=== PATIENT | male | born 1960 | race Caucasian/White ===

== ENCOUNTER 2017-04-12 04:12 | Observation (INO) | payer SELFPAY ==
[2017-04-12] VITALS (16 sets, daily range): BP systolic 112–212; BP diastolic 60–207; PULSE 68–89; RESP 16–20; TEMP 97.7–98.7; O2SAT 95–99
[~2017-04-12] VITALS: Ht 185.4 cm; Wt 116.6 kg
[2017-04-12] MEDS ORDERED: NITROGLYCERIN 0.4 MG SL 25 TABS/BTL SL ONE ×2 (04:23→04:30)
--- NOTE | 2017-04-12 04:27 | PD ---
HPI Chief Complaint: Chest Pain Time Seen by Provider: 04:20 Travel History International Travel<30 days: No Contact w/Intl Traveler<30days: No Traveled to known affect area: No History of Present Illness HPI 57 y/o male presents with central burning chest pain that woke him from rest about an hour ago. He states he took 2 baby aspirin and came here. He states when he was on the [place] and coughed had lower abdominal pain but denies any now. he notes recent ct of abdomen that was ok. He is visiting for the [place]. He notes a stress test that was normal 2 days ago. He denies prior heart catheterization. He denies other concurrent complaints. He states that he has not had his blood pressure medications for 2 days because he forgot to bring them with him. Quality is burning. Severity is moderate. He denies specific modifying factors. PFSH Past Medical History COPD: Yes Hypertension: Yes Tetanus Vaccination: Unknown Influenza Vaccination: No Past Surgical History Abdominal Surgery: Yes (DOUBLE HERNIA Sx) Social History Alcohol Use: Yes Tobacco Use: No Substance Use: No Allergies-Medications (Allergen,Severity, Reaction): Coded Allergies: No Known Allergies (Unverified , 04/12/17) Reported Meds & Prescriptions Reported Meds & Active Scripts Active Reported Ambien (Zolpidem Tartrate) 10 Mg Tab 10 Mg PO HS PRN [B-Thyroid] 120 Mg PO HS [B-Thyroid] 60 Mg PO DAILY NEB Progesterone Micronized 200 Mg Cap 200 Mg PO DAILY [estrol] 4 Mg PO DAILY Tizanidine (Tizanidine HCl) 4 Mg Cap 4 Mg PO TID Nucynta ER (Tapentadol) 100 Mg Nona 100 Mg PO BID Review of Systems Except as stated in HPI: all other systems reviewed are Neg Physical Exam Narrative GENERAL: 57-year-old male who appears uncomfortable SKIN: Focused skin assessment warm/dry. HEAD: Atraumatic. Normocephalic. EYES: Pupils equal and round. No scleral icterus. No injection or drainage. ENT: No nasal bleeding or discharge. Mucous membranes pink and moist. NECK: Trachea midline. No JVD. CARDIOVASCULAR: Regular rate and rhythm. RESPIRATORY: No accessory muscle use. Expiratory wheezing bilaterally. GASTROINTESTINAL: Abdomen soft, non-tender, nondistended. MUSCULOSKELETAL: No obvious deformities. No clubbing. No cyanosis. No edema. NEUROLOGICAL: Awake and alert. No obvious cranial nerve deficits. Motor grossly within normal limits. Normal speech. PSYCHIATRIC: Appropriate mood and affect; insight and judgment normal. Data Data Last Documented VS Vital Signs Date Time Temp Pulse Resp B/P (MAP) Pulse Ox O2 Delivery O2 Flow Rate FiO2 04/12/17 04:22 97.7 154/92 (112) 159/90 (113) 04/12/17 04:17 88 20 96 Orders Orders Electrocardiogram (04/12/17 04:20) Ckmb (Isoenzyme) Profile (04/12/17 04:20) Complete Blood Count With Diff (04/12/17 04:20) Comprehensive Metabolic Panel (04/12/17 04:20) Magnesium (Mg) (04/12/17 04:20) Prothrombin Time / Inr (Pt) (04/12/17 04:20) Act Partial Throm Time (Ptt) (04/12/17 04:20) Troponin I (04/12/17 04:20) Lipase (04/12/17 04:20) Chest, Single Ap (04/12/17 04:20) Ecg Monitoring (04/12/17 04:20) Bilateral Bp Monitoring (04/12/17 04:20) Iv Access Insert/Monitor (04/12/17 04:20) Oximetry (04/12/17 04:20) Aspirin Chew (Aspirin Chew) (04/12/17 04:30) Sodium Chloride 0.9% Flush (Ns Flush) (04/12/17 04:30) Albuterol-Ipratropium Neb (Duoneb Neb) (04/12/17 04:30) Nitroglycerin Sl (Nitrostat Sl) (04/12/17 04:30) Nitroglycerin Sl (Nitrostat Sl) (04/12/17 04:23) Nitroglycerin Sl (Nitrostat Sl) (04/12/17 04:45) Acetaminophen (Tylenol) (04/12/17 05:00) CKMB (04/12/17 04:23) CKMB% (04/12/17 04:23) Admit Order (Ed Use Only) (04/12/17 05:08) Activity Bed Rest With Brp (04/12/17 05:09) Vital Signs (Adult) Q4H (04/12/17 05:09) Cardiac Rhythm .As Directed (04/12/17 05:09) Notify Dr: Other .PRN (04/12/17 05:09) Notify DrSimon Parameters (04/12/17 05:09) Ckmb (Isoenzyme) Profile (04/12/17 07:09) Ckmb (Isoenzyme) Profile (04/12/17 10:09) Troponin I (04/12/17 07:09) Troponin I (04/12/17 10:09) Electrocardiogram (04/12/17 07:09) Electrocardiogram (04/12/17 10:09) ^ Obtain (04/12/17 05:09) Sodium Chloride 0.9% Flush (Ns Flush) (04/12/17 05:15) Sodium Chloride 0.9% Flush (Ns Flush) (04/12/17 09:00) Associate Professor Of Physics / Telemetry [email or web address] (04/12/17 05:09) Labs Laboratory Tests Test 04/12/17 04:23 White Blood Count 4.8 TH/MM3 Red Blood Count 4.59 MIL/MM3 Hemoglobin 14.0 GM/DL Hematocrit 40.1 % Mean Corpuscular Volume 87.3 FL Mean Corpuscular Hemoglobin 30.5 PG Mean Corpuscular Hemoglobin Concent 34.9 % Red Cell Distribution Width 13.7 % Platelet Count 174 TH/MM3 Mean Platelet Volume 8.2 FL Neutrophils (%) (Auto) 57.7 % Lymphocytes (%) (Auto) 32.8 % Monocytes (%) (Auto) 6.2 % Eosinophils (%) (Auto) 2.3 % Basophils (%) (Auto) 1.0 % Neutrophils # (Auto) 2.8 TH/MM3 Lymphocytes # (Auto) 1.6 TH/MM3 Monocytes # (Auto) 0.3 TH/MM3 Eosinophils # (Auto) 0.1 TH/MM3 Basophils # (Auto) 0.0 TH/MM3 CBC Comment DIFF FINAL Differential Comment Prothrombin Time 9.4 SEC Prothromb Time International Ratio 0.9 RATIO Activated Partial Thromboplast Time 27.9 SEC Blood Urea Nitrogen 12 MG/DL Creatinine 1.14 MG/DL Random Glucose 176 MG/DL Total Protein 7.4 GM/DL Albumin 3.7 GM/DL Calcium Level 8.8 MG/DL Magnesium Level 2.0 MG/DL Alkaline Phosphatase 93 U/L Aspartate Amino Transf (AST/SGOT) 36 U/L Alanine Aminotransferase (ALT/SGPT) 55 U/L Total Bilirubin 0.3 MG/DL Sodium Level 136 MEQ/L Potassium Level 3.9 MEQ/L Chloride Level 103 MEQ/L Carbon Dioxide Level 25.2 MEQ/L Anion Gap 8 MEQ/L Estimat Glomerular Filtration Rate 67 ML/MIN Total Creatine Kinase 109 U/L Creatine Kinase MB 1.7 NG/ML Troponin I LESS THAN 0.02 NG/ML Lipase 104 U/L MDM Medical Decision Making Medical Screen Exam Complete: Yes Emergency Medical Condition: Yes Medical Record Reviewed: Yes (Past history confirmed with nurse) Interpretation(s) CBC & BMP Diagram 04/12/17 04:23 Total Protein 7.4, Albumin 3.7, Calcium Level 8.8, Magnesium Level 2.0, Alkaline Phosphatase 93, Aspartate Amino Transf (AST/SGOT) 36, Alanine Aminotransferase (ALT/SGPT) 55, Total Bilirubin 0.3 cxr no acute Differential Diagnosis Gastritis, cardiac, pancreatitis, musculoskeletal, COPD Narrative Course We will check blood work, chest x-ray and dose with aspirin and nitro and reevaluate ed workup no emergent, cleared with one neb and pain awoke from rest, agrees to observation for further care Diagnosis Primary Impression: Chest pain Qualified Codes: R07.9 - Chest pain, unspecified Admitting Information Admitting Physician Requests: Observation Mansi Stephenson MD Apr 12, 2017 04:27
[2017-04-12] MEDS ORDERED: SODIUM CHLORIDE 0.9% FLUSH 10 ML FLUSH IVF PRN (04:30)
[2017-04-12] MEDS ORDERED: ASPIRIN 81 MG CHEW TAB PO ONE (04:30)
[2017-04-12] MEDS ORDERED: RESP: ALBUTEROL 2.5 MG/IPRATROPIUM 0.5 MG NEB (SCH) NEB ONE (04:30)
[2017-04-12 04:32] LABS: AUTOMATED NEUTROPHIL # 2.8 TH/MM3 (1.8-7.7); EOSINOPHIL # 0.1 TH/MM3 (0-0.4); EOSINOPHIL % 2.3 % (0.0-4.0); HEMATOCRIT 40.1 % (39.0-51.0); LYMPH % 32.8 % (9.0-44.0); LYMPHOCYTE # 1.6 TH/MM3 (1.0-4.8); MEAN CELL VOLUME 87.3 FL (80.0-100.0); MEAN CORPUSCULAR HEMOGLOBIN 30.5 PG (27.0-34.0); MEAN CORPUSCULAR HGB CONC 34.9 % (32.0-36.0); MEAN PLATELET VOLUME 8.2 FL (7.0-11.0); MONO % 6.2 % (0.0-8.0); MONOCYTE # 0.3 TH/MM3 (0-0.9); NEUT % 57.7 % (16.0-70.0); PLATELET COUNT 174 TH/MM3 (150-450); RED BLOOD COUNT 4.59 MIL/MM3 (4.50-5.90); RED CELL DISTRIBUTION WIDTH 13.7 % (11.6-17.2); WHITE BLOOD COUNT 4.8 TH/MM3 (4.0-11.0)
[2017-04-12] MEDS: NITROGLYCERIN 0.4 MG SL 25 TABS/BTL SL SCH ×2 (04:39→04:54)
[2017-04-12 04:46] LABS: INTERNATIONAL NORMALIZED RATIO 0.9 RATIO; PROTHROMBIN TIME - PATIENT 9.4 SEC (9.8-11.6)
[2017-04-12 04:47] LABS: ALT (GPT) 55 U/L (12-78)
[2017-04-12 04:48] LABS: ALBUMIN 3.7 GM/DL (3.4-5.0); AST (GOT) 36 U/L (15-37); BICARBONATE 25.2 MEQ/L (21.0-32.0); BLOOD UREA NITROGEN 12 MG/DL (7-18); CALCIUM 8.8 MG/DL (8.5-10.1); CHLORIDE 103 MEQ/L (98-107); CREATININE 1.14 MG/DL (0.60-1.30); GLOMERULAR FILTRATION RATE 67 ML/MIN (>89); GLUCOSE,RANDOM 176 MG/DL (74-106); SODIUM (NA) 136 MEQ/L (136-145)
--- NOTE | 2017-04-12 04:50 | RADRPT ---
EXAM DATE/TIME: 04/12/2017 04:32 [facility] COMPARISON: No previous studies available for comparison. INDICATIONS : Pt woke with chest pain MEDICAL HISTORY : Hypertension. Chronic obstructive pulmonary disease. SURGICAL HISTORY : Double hernia repair ENCOUNTER: Initial ACUITY: 1 day PAIN SCORE: 8/10 LOCATION: Bilateral chest FINDINGS: The lungs are clear without infiltrate, nodule, or mass. There is no appreciable pleural effusion fo r technique. Heart and mediastinum are unremarkable. CONCLUSION: No acute cardiopulmonary disease. Domenico Saha MD on April 12, 2017 at 4:48 Board Certified Radiologist. This report was verified electronically.
[2017-04-12 04:51] LABS: ALKALINE PHOSPHATASE 93 U/L (45-117); TOTAL BILIRUBIN ADULT 0.3 MG/DL (0.2-1.0); TOTAL PROTEIN 7.4 GM/DL (6.4-8.2); TROPONIN I LESS THAN 0.02 NG/ML (0.02-0.05)
[2017-04-12] MEDS ORDERED: PROG200C PO (04:51)
[2017-04-12] MEDS ORDERED: [UNRECOGNIZED DRUG - OTHER] PO ×2 (04:51)
[2017-04-12] MEDS ORDERED: TIZA4CAP3 PO (04:51)
[2017-04-12] MEDS ORDERED: [UNRECOGNIZED DRUG - OTHER] PO (04:51)
[2017-04-12] MEDS ORDERED: AMBI10TA PO (04:51)
[2017-04-12] MEDS ORDERED: NUCY100T9 PO (04:51)
[2017-04-12] MEDS ORDERED: ACETAMINOPHEN 325 MG TAB PO ONE (05:00)
[2017-04-12] MEDS ORDERED: SODIUM CHLORIDE 0.9% FLUSH 10 ML FLUSH IV FLUSH PRN ×3 (05:15→20:00)
[2017-04-12] MEDS ORDERED: ONDANSETRON HCL 4 MG/2 ML VIAL IV PUSH ONE (06:00)
[2017-04-12] MEDS ORDERED: BLOOD PRESSURE (06:24)
[2017-04-12 08:24] LABS: TROPONIN I LESS THAN 0.02 NG/ML (0.02-0.05)
[2017-04-12] MEDS ORDERED: RESP: ALBUTEROL 2.5 MG/IPRATROPIUM 0.5 MG NEB (PRN) INH (08:30)
[2017-04-12] MEDS ORDERED: ALUMINUM/MAGNESIUM/SIMETH 30 ML CUP PO ONE (08:30)
[2017-04-12] MEDS ORDERED: ACETAMINOPHEN 500 MG CPLT PO ONE (08:30)
[2017-04-12] MEDS ORDERED: SODIUM CHLORIDE 0.9% FLUSH 10 ML FLUSH IV FLUSH SCH ×2 (09:00→21:00)
--- NOTE | 2017-04-12 11:16 | EKG ---
Date Performed: 04/12/2017 Time Performed: 04:18:44 PTAGE: 57 years EKG: Sinus rhythm MARKED LEFT AXIS DEVIATION LOW QRS VOLTAGE IN EXTREMITY LEADS Poor R wave progression ABNORMAL ECG NO PREVIOUS TRACING DOCTOR: Neo Goetz Interpretating Date/Time 04/12/2017 11:15:56
--- NOTE | 2017-04-12 11:23 | HHI.HP ---
HPI Primary Care Physician No Primary Care Physician Chief Complaint Chest pain History of Present Illness This is a 57-year-old male who presents to ED via private vehicle with complaint of waking up at 230 morning with the chest discomfort. Describes it as a 13 out of 10 chest tightness. Left-sided. He was short of breath, nauseous, diaphoretic. States that he had an episode of nausea with small amount of emesis that was nonbloody. Went to the bathroom and believe that he had diarrhea and at that point became diaphoretic. His discomfort lasted about 45 minutes. Found nothing to worsen or improve it. States had a similar episode a couple years ago and had a stress test and that was okay. He is here from [place] to watch the races. Has no complaints at this time. Review of Systems General: Patient denies fevers, chills , and recent travel. HEENT: Patient denies headache, sore throat, difficulty swallowing. Cardiovascular: Has the chest discomfort as mentioned above. Denies sensation of heart beating rapidly or irregularly. No syncope. He was diaphoretic. Respiratory: He was short of breath. Denies inspirational chest discomfort. Denies coughing wheezing or hemoptysis. GI: Episode of nausea and emesis. [place] as if he also had an episode of diarrhea. Patient denies abdominal pain and bloody stools. Musculoskeletal: Chronic back pain. Patient denies joint pain or edema. Denies calf pain or edema. Neurovascular: Patient denies numbness, tingling, weakness in extremities. Denies headache. Endocrine: Denies polyuria and polydipsia. Hematologic: Denies easy bruising. Skin: Denies rash or itching. Past Family Social History Allergies: Coded Allergies: No Known Allergies (Unverified , 04/12/17) Past Medical History COPD, hypertension, chronic back pain, hyperlipidemia however he states he takes no medication. Past history of tobacco abuse but quit smoking 6 months ago. Denies diabetes and known CAD. Past Surgical History Hernia repair. Reported Medications Reported Meds & Active Scripts Active Reported [Blood Pressure] Unknown Dose Active Ordered Medications Current Medications Medications (Trade) Dose Ordered Sig/Tez Route Start Time Stop Time Status Last Admin (NS Flush) 2 ml UNSCH PRN IVF 04/12/17 04:30 (NS Flush) 2 ml UNSCH PRN IV FLUSH 04/12/17 05:15 (NS Flush) 2 ml BID IV FLUSH 04/12/17 09:00 04/12/17 08:46 (Duoneb Neb) 1 ampule Q4HR NEB PRN INH 04/12/17 08:30 Family History Father had CAD and age 69 of a myocardial infarction. Social History Quit smoking 6 months ago prior that he smoked about 2 packs there is daily for 20 years. Denies illicit drugs. Rarely has alcohol. States he is disabled secondary to chronic back pain. Physical Exam Vital Signs Vital Signs Date Time Temp Pulse Resp B/P (MAP) Pulse Ox O2 Delivery O2 Flow Rate FiO2 04/12/17 10:28 20 04/12/17 09:24 98.2 68 20 136/80 (98) 98 04/12/17 06:06 98.7 81 20 121/70 (87) 96 04/12/17 06:02 04/12/17 05:25 89 18 134/69 (90) 99 Room Air 04/12/17 05:10 86 16 139/64 (89) 99 Room Air 04/12/17 04:40 87 18 141/78 (99) 95 Room Air 04/12/17 04:22 97.7 154/92 (112) 159/90 (113) 04/12/17 04:17 88 20 212/207 (209) 96 04/12/17 04:14 97.7 83 18 179/89 (119) 96 Physical Exam GENERAL: This is a well-nourished, well-developed patient, in no apparent distress. Patient speaks in clear complete sentences. Patient is pleasant. HEENT: Head is atraumatic and normocephalic. Neck is supple without lymphadenopathy and trachea is midline. No JVD or carotid bruits. CARDIOVASCULAR: Regular rate and rhythm without murmurs, gallops, or rubs. RESPIRATORY: Clear to auscultation. Breath sounds equal bilaterally. No wheezes , rales, or rhonchi. Chest wall is nontender. No use of accessory muscles. GASTROINTESTINAL: Abdomen is nontender, nondistended. Abdomen soft. No obvious pulsatile mass or bruit. No CVA tenderness. Strong femoral pulses bilaterally. Normal bowel sounds in all quadrants. MUSCULOSKELETAL: Patient is moving upper and lower extremities freely. No calf tenderness or edema, no Homans sign. Strong pulses in upper and lower extremities. NEUROLOGICAL: Patient is alert and oriented. Cranial nerves 2-12 are grossly intact. No focal deficits and speech is clear. SKIN: No rash and turgor is normal. Laboratory Laboratory Tests Test 04/12/17 04:23 04/12/17 07:00 White Blood Count 4.8 Red Blood Count 4.59 Hemoglobin 14.0 Hematocrit 40.1 Mean Corpuscular Volume 87.3 Mean Corpuscular Hemoglobin 30.5 Mean Corpuscular Hemoglobin Concent 34.9 Red Cell Distribution Width 13.7 Platelet Count 174 Mean Platelet Volume 8.2 Neutrophils (%) (Auto) 57.7 Lymphocytes (%) (Auto) 32.8 Monocytes (%) (Auto) 6.2 Eosinophils (%) (Auto) 2.3 Basophils (%) (Auto) 1.0 Neutrophils # (Auto) 2.8 Lymphocytes # (Auto) 1.6 Monocytes # (Auto) 0.3 Eosinophils # (Auto) 0.1 Basophils # (Auto) 0.0 CBC Comment DIFF FINAL Differential Comment Prothrombin Time 9.4 Prothromb Time International Ratio 0.9 Activated Partial Thromboplast Time 27.9 Blood Urea Nitrogen 12 Creatinine 1.14 Random Glucose 176 Total Protein 7.4 Albumin 3.7 Calcium Level 8.8 Magnesium Level 2.0 Alkaline Phosphatase 93 Aspartate Amino Transf (AST/SGOT) 36 Alanine Aminotransferase (ALT/SGPT) 55 Total Bilirubin 0.3 Sodium Level 136 Potassium Level 3.9 Chloride Level 103 Carbon Dioxide Level 25.2 Anion Gap 8 Estimat Glomerular Filtration Rate 67 Total Creatine Kinase 109 104 Creatine Kinase MB 1.7 1.3 Troponin I LESS THAN 0.02 LESS THAN 0.02 Lipase 104 Result Diagram: 04/12/1742204/12/17422 Imaging Last 48 hours Impressions Chest X-Ray 04/12/17419 Signed Impressions: Service Date/Time: Wednesday, April 12, 2017 04:32 - CONCLUSION: No acute cardiopulmonary disease. Domenico Saha MD Course EKGs are left axis. Poor progression. No significant ST segment depressions or elevations. Caprini VTE Risk Assessment Caprini VTE Risk Assessment: No/Low Risk (score <= 1) Caprini Risk Assessment Model Point Value = 1 Point Value = 2 Point Value = 3 Point Value = 5 Age 41-60 Minor surgery BMI > 25 kg/m2 Swollen legs Varicose veins or History of unexplained or recurrent spontaneous Oral contraceptives or hormone replacement Sepsis (< 1 month) Serious lung disease, including pneumonia (< 1 month) Abnormal pulmonary function Acute myocardial infarction Congestive heart failure (< 1 month) History of inflammatory bowel disease Medical patient at bed rest Age 61-74 Arthroscopic surgery Major open surgery (> 45 min) Laparoscopic surgery (> 45 min) Malignancy Confined to bed (> 72 hours) Immobilizing plaster cast Central venous access Age >= 75 History of VTE Family history of VTE Factor V Leiden Prothrombin [id number] Lupus anticoagulant Anticardiolipin antibodies Elevated serum homocysteine Heparin-induced thrombocytopenia Other congenital or acquired thrombophilia Stroke (< 1 month) Elective arthroplasty Hip, pelvis, or leg fracture Acute spinal cord injury (< 1 month) Prophylaxis Regimen Total Risk Factor Score Risk Level Prophylaxis Regimen 0-1 Low Early ambulation 2 Moderate Order ONE of the following: *Sequential Compression Device (SCD) *Heparin 5000 units SQ BID 3-4 Higher Order ONE of the following medications: *Heparin 5000 units SQ TID *Enoxaparin/Lovenox 40 mg SQ daily (WT < 150 kg, CrCl > 30 mL/min) *Enoxaparin/Lovenox 30 mg SQ daily (WT < 150 kg, CrCl > 10-29 mL/min) *Enoxaparin/Lovenox 30 mg SQ BID (WT < 150 kg, CrCl > 30 mL/min) AND/OR *Sequential Compression Device (SCD) 5 or more Highest Order ONE of the following medications: *Heparin 5000 units SQ TID (Preferred with Epidurals) *Enoxaparin/Lovenox 40 mg SQ daily (WT < 150 kg, CrCl > 30 mL/min) *Enoxaparin/Lovenox 30 mg SQ daily (WT < 150 kg, CrCl > 10-29 mL/min) *Enoxaparin/Lovenox 30 mg SQ BID (WT < 150 kg, CrCl > 30 mL/min) AND *Sequential Compression Device (SCD) Assessment and Plan Assessment and Plan * Chest pain: Patient has had first 2 sets of cardiac enzymes and EKGs and has ruled out. He was seen by Dr. Goetz cardiology in the chest pain center. He will undergo a Lexiscan as he states he cannot walk a treadmill with his back issues. Patient will be discharged home with a stress test as nonischemic with instructions to follow-up with PCP. Return to ED for interval issues. * COPD: Have DuoNeb's as needed. * Hypertension: Continue medication. * Hyperlipidemia: Patient will need to discuss statin therapy with his PCP. Patient states that first medication he took caused myalgias. Patient is stable at this time. He is agreeable to this plan. Aldo Michelle Apr 12, 2017 11:23
[2017-04-12] MEDS ORDERED: REGADENOSON INJ 0.4 MG/5 ML SYR ONE (12:58)
[2017-04-12 13:45] LABS: TROPONIN I LESS THAN 0.02 NG/ML (0.02-0.05)
--- NOTE | 2017-04-12 14:19 | EKG ---
Date Performed: 04/12/2017 Time Performed: 10:33:52 PTAGE: 57 years EKG: Sinus rhythm LOW QRS VOLTAGE Poor R wave progression ABNORMAL ECG PREVIOUS TRACING : 04/12/2017 04.18 Since previous tracing, no significant change noted DOCTOR: Neo Goetz Interpretating Date/Time 04/12/2017 14:17:38
[2017-04-12] MEDS ORDERED: CYCL5TAB PO (14:25)
--- NOTE | 2017-04-12 14:25 | RADRPT ---
EXAM DATE/TIME: 04/12/2017 12:56 [facility] COMPARISON: No previous studies available for comparison. INDICATIONS : Left sided chest pain for one day. Angina. DOSE: 35.0 mCi Tc99m Myoview at stress. 11.0 mCi Tc99m Myoview at rest. 0.4 mg Lexiscan STRESS SYMPTOMS: Short of breath and flush. EJECTION FRACTION: 54% MEDICAL HISTORY : Chronic obstructive pulmonary disease. Hypertension. SURGICAL HISTORY : Umbilical hernia repair. ENCOUNTER: Initial ACUITY: 1 day PAIN SCALE: 10/10 LOCATION: Left chest TECHNIQUE: The patient underwent pharmacologic stress with infusion of prescribed dose. Continuous ECG tracing was monitored during stress. Gated SPECT imaging was performed after stress and conventional SPECT i maging was performed at rest. The examination was performed on a SPECT/CT scanner, both attenuation and non-corrected datasets were reviewed. FINDINGS: DISTRIBUTION: The maximum perfused segment at stress is in the lateral wall. PERFUSION STUDY: Subtle focal perfusion abnormality during stress in the anterior wall near the base. GATED STUDY: There is intact wall motion and thickening without hypokinetic or dyskinetic segments. CONCLUSION: 1. Subtle focal anterior wall ischemia near the base. 2. Intact wall motion with EF of 54%. RISK CATEGORY: Low (<1% Annual Mortality Rate) Jesus Saini MD on April 12, 2017 at 14:21 Board Certified Radiologist. This report was verified electronically.
[2017-04-12] MEDS ORDERED: HYDR12.57 PO (14:26)
[2017-04-12] MEDS ORDERED: SYMB80AE INH (14:28)
[2017-04-12] MEDS ORDERED: SODIUM CHLOR 0.9% 1000 ML INJ 1,000 ML IV SCH (15:02)
[2017-04-12] MEDS ORDERED: ASPIRIN 325 MG TAB PO SCH (15:45)
--- NOTE | 2017-04-12 17:59 | HHI.HP ---
HPI Service [facility] Primary [facility] Physician No Primary Care Physician Admission Diagnosis chest pain Diagnoses: Chief Complaint: Chest pain Travel History International Travel<30 Days: No Contact w/Intl Traveler <30 Da: No Traveled to Known Affected Are: No History of Present Illness Patient is a 57-year-old male with primary medical history of HTN, COPD, GERD, chronic back pain who came into the hospital for complaints of chest pain. Patient states that he woke up about 2:30 this morning with substernal pain thinking it was his GERD. He went to the bathroom and all of a sudden he felt nauseous, diaphoretic and had a bowel movement. She felt not to good that he came into the hospital. Patient has gotten aspirin, nitroglycerin. He was seen by cardiology and has performed stress test. Patient is due for cardiac catheter this evening. He continues to have substernal pain on and off feeling pressure. He also reports that he is short of breath since about a few weeks back needing rest periods in between activities. At present, denies SOB/ dyspnea. Denies palpitations, headaches, dizziness. Denies fevers, chills, n/v/d. Denies dysuria. Review of Systems Except as stated in HPI: all other systems reviewed are Neg Past Family Social History Past Medical History HTN HLD COPD Chronic back pain GERD Past Surgical History Medical hernia repair 10 years ago Bilateral inguinal hernia repair Reported Medications Reported Meds & Active Scripts Active Reported Symbicort Inh (Budesonide/Formoterol Fumarate) 80-4.5 Mcg/Act Aero 1 Puff INH Q12HR Hydrochlorothiazide 12.5 Mg Cap 12.5 Mg PO BID Flexeril (Cyclobenzaprine HCl) 5 Mg Tab 5 Mg PO TID Allergies: Coded Allergies: No Known Allergies (Unverified , 04/12/17) Active Ordered Medications Current Medications Medications (Trade) Dose Ordered Sig/Tez Route Start Time Stop Time Status Last Admin (NS Flush) 2 ml UNSCH PRN IVF 04/12/17 04:30 (NS Flush) 2 ml UNSCH PRN IV FLUSH 04/12/17 05:15 (NS Flush) 2 ml BID IV FLUSH 04/12/17 09:00 04/12/17 08:46 (Duoneb Neb) 1 ampule Q4HR NEB PRN INH 04/12/17 08:30 (Nitroglycerin 2% Oint) 1 inch Q6HR TOPICAL 04/12/17 18:00 (Lopressor) 25 mg Q12HR PO 04/12/17 21:00 Sodium Chloride 1,000 ml @ 125 mls/hr Q8H IV 04/12/17 15:02 04/12/17 23:01 04/12/17 15:33 (Aspirin) 325 mg DAILY PO 04/12/17 15:45 04/12/17 16:16 Family History Father at the age of 69 with congestive heart failure Social History Lives in [place] with . Occasional alcohol use Former smoker, quit 5 years ago smoking cigarettes, recently quit cigar cocaine 6 months ago Denies illicit drug use Physical Exam Vital Signs Vital Signs Date Time Temp Pulse Resp B/P (MAP) Pulse Ox O2 Delivery O2 Flow Rate FiO2 04/12/17 17:14 98.2 68 20 140/62 (88) 96 04/12/17 15:35 72 04/12/17 12:06 97.9 72 18 140/80 (100) 98 04/12/17 10:28 20 04/12/17 09:24 98.2 68 20 136/80 (98) 98 04/12/17 08:10 80 04/12/17 06:06 98.7 81 20 121/70 (87) 96 04/12/17 06:02 04/12/17 05:25 89 18 134/69 (90) 99 Room Air 04/12/17 05:10 86 16 139/64 (89) 99 Room Air 04/12/17 04:40 87 18 141/78 (99) 95 Room Air 04/12/17 04:22 97.7 154/92 (112) 159/90 (113) 04/12/17 04:17 88 20 212/207 (209) 96 04/12/17 04:14 97.7 83 18 179/89 (119) 96 Physical Exam GENERAL: This is a well-nourished, well-developed patient, in no apparent distress. SKIN: Warm and dry. HEAD: Atraumatic. Normocephalic. No temporal or scalp tenderness. EYES: Pupils equal round and reactive. Extraocular motions intact. No scleral icterus. No injection or drainage. ENT: Nose without bleeding. Throat without erythema. Uvula midline. Airway patent. NECK: Trachea midline. CARDIOVASCULAR: Regular rate and rhythm without murmurs, gallops, or rubs. RESPIRATORY: Clear to auscultation. Breath sounds equal bilaterally. No wheezes , rales, or rhonchi. GASTROINTESTINAL: Abdomen soft, non-tender, protuberant. Bowel sounds active 4. MUSCULOSKELETAL: Extremities without clubbing, cyanosis, or edema. Pulses palpable DP and PT. NEUROLOGICAL: Awake and alert. Cranial nerves II through XII intact. Motor and sensory grossly within normal limits. Normal speech. Laboratory Laboratory Tests Test 04/12/17 04:23 04/12/17 07:00 04/12/17 11:10 White Blood Count 4.8 Red Blood Count 4.59 Hemoglobin 14.0 Hematocrit 40.1 Mean Corpuscular Volume 87.3 Mean Corpuscular Hemoglobin 30.5 Mean Corpuscular Hemoglobin Concent 34.9 Red Cell Distribution Width 13.7 Platelet Count 174 Mean Platelet Volume 8.2 Neutrophils (%) (Auto) 57.7 Lymphocytes (%) (Auto) 32.8 Monocytes (%) (Auto) 6.2 Eosinophils (%) (Auto) 2.3 Basophils (%) (Auto) 1.0 Neutrophils # (Auto) 2.8 Lymphocytes # (Auto) 1.6 Monocytes # (Auto) 0.3 Eosinophils # (Auto) 0.1 Basophils # (Auto) 0.0 CBC Comment DIFF FINAL Differential Comment Prothrombin Time 9.4 Prothromb Time International Ratio 0.9 Activated Partial Thromboplast Time 27.9 Blood Urea Nitrogen 12 Creatinine 1.14 Random Glucose 176 Total Protein 7.4 Albumin 3.7 Calcium Level 8.8 Magnesium Level 2.0 Alkaline Phosphatase 93 Aspartate Amino Transf (AST/SGOT) 36 Alanine Aminotransferase (ALT/SGPT) 55 Total Bilirubin 0.3 Sodium Level 136 Potassium Level 3.9 Chloride Level 103 Carbon Dioxide Level 25.2 Anion Gap 8 Estimat Glomerular Filtration Rate 67 Total Creatine Kinase 109 104 119 Creatine Kinase MB 1.7 1.3 1.3 Troponin I LESS THAN 0.02 LESS THAN 0.02 LESS THAN 0.02 Lipase 104 Result Diagram: 04/12/1742204/12/17422 Imaging Last Impressions Chest X-Ray 04/12/17419 Signed Impressions: Service Date/Time: Wednesday, April 12, 2017 04:32 - CONCLUSION: No acute cardiopulmonary disease. MD Rhona Maguire VTE Risk Assessment Rhona VTE Risk Assessment: Mod/High Risk (score >= 2) Caprini Risk Assessment Model Point Value = 1 Point Value = 2 Point Value = 3 Point Value = 5 Age 41-60 Minor surgery BMI > 25 kg/m2 Swollen legs Varicose veins or History of unexplained or recurrent spontaneous Oral contraceptives or hormone replacement Sepsis (< 1 month) Serious lung disease, including pneumonia (< 1 month) Abnormal pulmonary function Acute myocardial infarction Congestive heart failure (< 1 month) History of inflammatory bowel disease Medical patient at bed rest Age 61-74 Arthroscopic surgery Major open surgery (> 45 min) Laparoscopic surgery (> 45 min) Malignancy Confined to bed (> 72 hours) Immobilizing plaster cast Central venous access Age >= 75 History of VTE Family history of VTE Factor V Leiden Prothrombin [id number] Lupus anticoagulant Anticardiolipin antibodies Elevated serum homocysteine Heparin-induced thrombocytopenia Other congenital or acquired thrombophilia Stroke (< 1 month) Elective arthroplasty Hip, pelvis, or leg fracture Acute spinal cord injury (< 1 month) Prophylaxis Regimen Total Risk Factor Score Risk Level Prophylaxis Regimen 0-1 Low Early ambulation 2 Moderate Order ONE of the following: *Sequential Compression Device (SCD) *Heparin 5000 units SQ BID 3-4 Higher Order ONE of the following medications: *Heparin 5000 units SQ TID *Enoxaparin/Lovenox 40 mg SQ daily (WT < 150 kg, CrCl > 30 mL/min) *Enoxaparin/Lovenox 30 mg SQ daily (WT < 150 kg, CrCl > 10-29 mL/min) *Enoxaparin/Lovenox 30 mg SQ BID (WT < 150 kg, CrCl > 30 mL/min) AND/OR *Sequential Compression Device (SCD) 5 or more Highest Order ONE of the following medications: *Heparin 5000 units SQ TID (Preferred with Epidurals) *Enoxaparin/Lovenox 40 mg SQ daily (WT < 150 kg, CrCl > 30 mL/min) *Enoxaparin/Lovenox 30 mg SQ daily (WT < 150 kg, CrCl > 10-29 mL/min) *Enoxaparin/Lovenox 30 mg SQ BID (WT < 150 kg, CrCl > 30 mL/min) AND *Sequential Compression Device (SCD) Assessment and Plan Problem List: (1) HTN (hypertension) ICD Code: I10 - Essential (primary) hypertension (2) COPD (chronic obstructive pulmonary disease) ICD Code: J44.9 - Chronic obstructive pulmonary disease, unspecified (3) Chest pain ICD Code: R07.9 - Chest pain, unspecified Status: Acute Assessment and Plan Patient is a 57-year-old male with primary medical history of HTN, COPD, GERD, chronic back pain who came into the hospital for complaints of chest pain. Chest pain R/O ND - C/o chest pain associated with nausea, diaphoresis - Nitroglycerin provided, aspirin 2 - EKG reviewed sinus rhythm - Troponin x 3 <0.02 - Myocardial perfusion scan showed 1. Subtle focal anterior wall ischemia near the base. 2. Intact wall motion with EF of 54%. - Cardiology consult for further evaluation recommendations. Plan for cardiac catheterization HTN - metoprolol 25 mg twice a day - Monitor BP trend HLD - Not on any medication. Check lipid profile - 10 if clinically indicated COPD, not on exacerbation - Continue home medications Symbicort twice a day, duo nebs when necessary - Monitor respiratory status Chronic pain - Tylenol for now. Patient states that he takes Flexeril at home as needed GERD - Patient takes Nexium 20 mg twice a day at home OTC - We'll give pantoprazole for now. DVT prop SCDs Code Status Full code Discussed Condition With Patient, , nursing Problem Qualifiers (1) Chest pain: Qualified Codes: R07.9 - Chest pain, unspecified Tank Dee Apr 12, 2017 17:59
[2017-04-12] MEDS ORDERED: ACETAMINOPHEN 325 MG TAB PO PRN (18:15)
[2017-04-12] MEDS ORDERED: LACTULOSE SYRUP 20 GM/30 ML CUP PO PRN (18:15)
[2017-04-12] MEDS ORDERED: ONDANSETRON HCL 4 MG/2 ML VIAL IVP PRN (18:15)
[2017-04-12] MEDS ORDERED: SENNOSIDES 8.6 MG TAB PO PRN (18:15)
[2017-04-12] MEDS ORDERED: MAGNESIUM HYDROXIDE SUSP 30 ML CUP PO PRN (18:15)
[2017-04-12] MEDS ORDERED: NALOXONE HCL 0.4 MG/ML AMP IV PUSH PRN (18:15)
[2017-04-12] MEDS ORDERED: HEPARIN SODIUM - IV 10,000 UNITS/10 ML VIAL ONE (18:29)
[2017-04-12] MEDS ORDERED: NITROGLYCERIN INJ 5 ML ONE (18:29)
[2017-04-12] MEDS ORDERED: MIDAZOLAM HCL 2 MG/2 ML VIAL ONE (18:29)
[2017-04-12] MEDS ORDERED: HEPARIN-NS/PF FLUSH BAG 2,000 ML IV FLUSH ONE (18:29)
[2017-04-12] MEDS ORDERED: TIROFIBAN INFUSION INJ 250 ML IV ONE (19:15)
[2017-04-12] MEDS ORDERED: PRASUGREL 10 MG TAB ONE (19:20)
--- NOTE | 2017-04-12 19:26 | MB ---
cc: DAVINA WILLOUGHBY M.D. DATE OF CONSULTATION: 04/12/2017. REASON FOR CONSULTATION: HISTORY OF PRESENT ILLNESS: Neo is a very pleasant 57-year-old gentleman who presented to the emergency room with substernal chest pain described as a burning pain noted to be moderate in severity. He states he had a normal stress test in the past. He has never had a heart catheterization. Denies fevers, chills, cough, GI or bleeding, paroxysmal nocturnal dyspnea, orthopnea, syncope or dizziness. PAST MEDICAL HISTORY: His past medical history is as per the history of present illness. 1. History of COPD. 2. Hypertension. 3. Double hernia surgery. SOCIAL HISTORY: He does drink alcohol. He denies tobacco use. ALLERGIES: NONE. MEDICATIONS PRIOR TO ADMISSION: 1. Ambien. 2. D-thyroid. 3. Progesterone micronized 200 milligrams daily. 4. Estriol. 5. Tizanidine. 6. . MEDICATIONS IN THE HOSPITAL: 1. Pantoprazole 20 milligrams daily. 2. Metoprolol 25 q. 12 hours. 3. Symbicort. 4. Aspirin 325 milligrams daily. PHYSICAL EXAMINATION: VITAL SIGNS: Blood pressure 140/62, pulse 68, respiratory rate 20, temperature 98.2. GENERAL: He is alert and oriented times three and in no acute distress. NECK: The neck is supple. No jugular venous distention. No bruits. CARDIOVASCULAR EXAM: S1-S2. No murmurs, rubs or gallops. LUNGS: Clear to auscultation bilaterally. ABDOMEN: The abdomen is soft, nontender and nondistended with positive bowel sounds. EXTREMITIES: No lower extremity edema. RADIOLOGICAL STUDIES: Chest x-ray showed a subtle focal anterior wall ischemia near the base, ejection fraction of 54%, risk category was listed as low at less than 1% annual mortality rate. Chest x-ray shows no acute cardiopulmonary disease. EKGS: EKG on admission shows normal sinus rhythm at 78 beats per minute with anteroseptal Q-waves. LABORATORY DATA: White count 4.8, hemoglobin 14.0, hematocrit 40.1, platelet count 174,000. Troponin less than 0.02 x3. Sodium 136, potassium 3.9, chloride 103, bicarbonate 25.2, BUN 12, creatinine 1.14, glucose 176. Liver function tests normal. INR 0.9. DIAGNOSES: He has the following diagnoses: 1. Unstable angina. 2. 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 3. Positive nuclear stress test. 4. Abnormal EKG. 5. COPD. 6. Hyperglycemia. 7. Hypertension. DISCUSSION: At this point in time, the patient has unstable angina with [employer] class IV angina and multiple cardiac risk factors including male gender, age greater than 45, history of tobacco use, hypoglycemia, possibly undiagnosed diabetes mellitus, abnormal nuclear stress test as detailed above. Therefore, I do think left heart catheterization is medically necessary. Will plan left heart catheterization this evening. MD LAMIN Mattson/NANO /6:36 PM /7:10 PM
--- NOTE | 2017-04-12 19:39 | CATHPROC ---
[employer] HIS Report Study Information Study Number Admission Scheduled Start Study Start [id number] Apr 12 2017 5:09AM 04/12/2017 Apr 12 2017 6:06PM [place] Service Cardiac Catheterization Admit Source Facility Department Emergency department [facility] - Induction Furnace Operator Physician and Clinical Staff Initial Sukhi Bhatti Candy Rolling Machine OperatorAriela Mitchell,MITESH Candy Rolling Machine OperatorUnique Pina,MITESH Recorder Tiffany Lomeli,RT(R) Scrub Valery Franco,RESOURCE COORDINATOR TECH2 Procedures Performed Procedure Location (Site) Vessel Name Coronary Angiograms LCA Left Coronary Coronary Angiograms RCA Right Coronary L Heart Cath LV Gram-hand inj. LV LV Ventricle Stent LAD Prox Left Coronary Equipment Time Agile Test Lead Description Size Mfg Part Number Used/Scraped TRANSDUCER, TRAltair TherapeuticsAVE [id number] 18:42 FLOR GONCALVES * Used W/STOCKCOCK *[id number] [id number] *[id number] [id number] *[id number] *[id number] 18:42 MEDLINE INDUSTRIES PACK, CCL CUSTOM * Used *[id number] 18:42 [email or web address] PACER PEN, SKIN DUAL W/ RULER * Used *[id number] 19:14 MEDTRONIC STENT, 3.0 18 INTEGRITY 3.0 18 Used *[id number] 19:17 [employer] MEDICAL 30 MADALYN INDEFLATOR Used *[id number] 18:57 MERIT MEDICAL PACK, ANGIOPLASTY * [id number] Used [id number] 18:57 [employer] MEDICAL SHEATH, FR6.5 PRELUDE 11CM FR 6.5 038ACT Used *[id number] 18:42 [employer] MEDICAL WIRE, 3MMJ .035 180CM 180CM Used *[id number] 18:42 NAMIC MANIFOLD, 4 PORT * Used *[id number] 18:42 NYCOMED OMNIPAQUE, 350 MG, 150ML 150ML [id number] Used [id number] 18:42 PEARCE MEDICAL BLANKET,WARM AIR CCL * Used *[id number] 18:42 TERUMO MEDICAL SHEATH, FR4 TERUMO (10CM) FR 4 Used *[id number] 19:02 [employer]OL[place]O PRIME WIRE, VERRATA 185CM 185CM [id number] *[id number] Used 19:08 VOLCANO PRIME WIRE, VERRATA 185CM 185CM [id number] *[id number] Used Equipment Model, Serial, Lot Number and Expiration Data Description Model Number Serial Number Lot Number Expiration Date PACK, ANGIOPLASTY [id number] 11-24-2019 PRIME WIRE, VERRATA 185CM [id number] 02-24-2020 PRIME WIRE, VERRATA 185CM [id number] 02-24-2020 STENT, 3.0 18 INTEGRITY [id number] 09-13-2018 History: Current Medications Medication Dosage/Unit Route Frequency Last Date/Time Taken ASA History: Allergies Allergy Reaction No Known Allergies History: Risk Factors Family History of Hypertension Dyslipidemia Previous MS Previous Heart Failure Premature CAD Yes Yes Yes No No Prior Valve Prior PCI Prior CABG Surgery No No No Cerebrovascular Peripheral Artery Chronic Lung On Dialysis Diabetes Disease Disease Disease No No No Yes No History: Symptoms/Diagnosis Selection Items Chest pain History: Stress Tests Stress or Imaging Studies Performed Yes Standard Exercise Stress Test No Stress Echo No Stress Test SPECT Stress Test SPECT Result Stress Test SPECT Ischemia Risk/Extent Yes Positive Low Stress Test CMR No Cardiac CTA Coronary Calcium Score No No History: Other Current Smoker Method Quit Packs a Day Years Used Pack Years No Cigarettes 1 Years Ago 1 35 35 Labs Hgb (g/dl) Hct (%) WBC (l/cumm) Platelets (thousands) 11.60-17.00 35.00-51.00 4.00-11.00 150.00-450.00 14.0 40.1 4.8 174 Glucose (mg/dl) BUN (mg/dl) Creatinine (mg/dl) BUN:Creatinine (1:x) 74.00-106.00 7.00-18.00 0.50-1.30 10.00-20.00 176 12 1.1 10.9 Na (meq/l) K (meq/l) 136.00-145.00 3.50-5.10 136 3.9 INR (PTT:PT) 0.90-1.10 0.9 Troponin I (ng/ml) CPK (u/l) CPK-MB (ng/ML) 0.02-0.05 26.00-308.00 0.50-3.60 0.02 119 1.3 Medication Medication Total Dose (Bolus/Oral) Medication Total Dosage/Unit 1% XYLOCAINE 20 mL AGGRASTAT BOLUS 55 mL EFFIENT 60 mg HEPARIN 7700 units NTG (IC) 200 mcg VERSED 2 mg Medications (Bolus/Oral) Medication Time Given Dosage/Unit Administered By Reason 1% XYLOCAINE 04/12/2017 6:46:50 PM 20 mL Sukhi Brice 20 mL 1% XYLOCAINE given in lab by Sukhi Brice in Right Groin via Subcutaneous. VERSED 04/12/2017 6:48:05 PM 1 mg Unique Ruvalcaba 1 mg VERSED given in lab by Unique Ruvalcaba, MITESH in Right Groin via Peripheral IV. Ordered by Sukhi Becerra. HEPARIN 04/12/2017 6:57:36 PM 7700 units Unique Ruvalcaba 7700 units HEPARIN given in lab by Unique Ruvalcaba, MITESH in Left Antecubital via Peripheral IV. Orde red by Sukhi Brice. VERSED 04/12/2017 6:58:24 PM 1 mg Unique Ruvalcaba 1 mg VERSED given in lab by Unique Ruvalcaba, MITESH in Left Antecubital via Peripheral IV. Ordered by Sukhi Brice. NTG (IC) 04/12/2017 7:19:10 PM 200 mcg Valery Franco 200 mcg NTG (IC) given in lab by Valery Franco, RESOURCE COORDINATOR TECH2 in Right Groin via Intra-coronary. Ordere d by Sukhi Brice. AGGRASTAT BOLUS 04/12/2017 7:22:51 PM 55 mL Unique Ruvalcaba 55 mL AGGRASTAT BOLUS given in lab by Unique Ruvalcaba, MITESH in Left Antecubital via Peripheral IV. O rdered by Sukhi Brice. EFFIENT 04/12/2017 7:30:51 PM 60 mg Unique Ruvalcaba 60 mg EFFIENT given in lab by Unique Ruvalcaba, MITESH via Oral. Ordered by Sukhi Brice. Medication (Drip) Medication Time Given Dosage/Unit Concentration/Unit Diluent (ml) Solution AGGRASTAT DRIP 04/12/2017 7:23:23 PM 0.15 mcg/kg/min 12.5 mg 250 NaCl .9 0.15 mcg/kg/min AGGRASTAT DRIP given in lab by Unique Ruvalcaba, MITESH in Left Antecubital via Periphe ral IV. Pump/Drip Flow = 19.8 ml/hr using NaCl .9 with a concentration of 12.5 mg in 250 ml. Ordered by Sukhi Brice. IV Solutions 04/12/2017 6:25:02 PM 50 mL (IV) NaCl .9 Patient arrived on IV Solutions in Left Antecubital via Peripheral IV. Pump/Drip Flow using NaCl .9. Initial Case Assessment Cardiovascular HR Rhythm NIBP Chest Pain 66 SR 125/107 2 Edema Present Skin color Skin None Normal Warm Dry Circulatory - Right Pulses Dorsalis Pedis Femoral 2 2 Scale (0,1,2,3,4,d) Circulatory - Left Pulses Dorsalis Pedis Femoral 2 2 Scale (0,1,2,3,4,d) Neurological State Oriented to time-place- Alert Moves all extremities person Respiration - General Respiration Rate SpO2 (%) (B/min) 16 95 Chronological Log Time Study Chronological Log 18:23:38 Patient arrived via Bed. 18:24:41 Patient Name, D.O.B, / Armband Verified By R.N. 18:24:42 Consent signed by the physician and the patient and verified by the Induction Furnace Operator staff. 18:24:43 Pre-op and post- op instructions given; patient acknowledges understanding of instructions. 18:24:44 Verbal Stimulation=2 Physical Stimulation=2 Airway=2 Respiration=2 TOTAL=8. (0=absent, 1=li mited, 2=present) 18:24:50 Presedation assessment performed by Induction Furnace Operator RN. 18:24:55 Patient has been NPO for More than 6Hrs. 18:24:55 Skin Breakdown- none per pt 18:24:56 Patient Warmer Placed on the Table. 18:24:59 Maria Del Carmen Prominences Protected 18:25:00 A # 18 IV was noted in the Antecubital (left). Grade = 0 18:25:02 Patient arrived on IV Solutions in Left Antecubital via Peripheral IV. Pump/Drip Flow using NaCl .9. 18:25:03 History and physical on the chart or being dictated. Assessment: Initial Case, HR=66 BPM, Rhythm=SR, VDKV=277/107 mmhg, Chest Pain=2, Edema=None, Color=Normal, Skin = Warm, Dry Right Pulses: Claude Ped=2, Femoral=2 18:25:04 Left Pulses: Claude Ped=2, Femoral=2 Neurological: State=Alert, Ox3, DONOVAN Respiration: Resp=16 B/min, SpO2=95 % Vitals capture started with the following parameters, Patient=Adult, Interval=5 min, Initial Pr ohowda=336 mmHg, 18:29:43 Deflation Rate=5 mmHg, Cuff placed on Left Arm 18:31:04 HR=72 bpm, MUVV=995/107 mmhg, SpO2=98.0 %, Resp=14 B/min 18:31:43 Reference ECG taken 18:36:00 Pressure channel 1 zeroed. 18:36:01 HR=67 bpm, ALAK=644/93 mmhg, SpO2=97.0 %, Resp=13 B/min 18:36:15 MD paged 18:36:16 MD responded 18:40:22 HR=67 bpm, GOOH=969/94 mmhg, SpO2=94.0 %, Resp=16 B/min 18:45:00 MD arrived. 18:45:23 HR=66 bpm, IUNR=898/97 mmhg, SpO2=96.0 %, Resp=16 B/min Time Out. Correct patient, correct procedure, correct physician, power injector not loaded with contrast with surgical 18:46:18 team present. Time Out Concurred by MD and individual staff in procedure. 18:46:35 Case Start 18:46:50 20 mL 1% XYLOCAINE given in lab by Sukhi Brice in Right Groin via Subcutaneous. 18:48:05 1 mg VERSED given in lab by Unique Ruvalcaba, RN in Right Groin via Peripheral IV. Ordere d by Sukhi Brice. 18:48:40 Access site was Right Femoral Artery. 18:49:03 A SHEATH, FR4 TERUMO (10CM) FR 4 was advanced into the Fem Art (right) using the Percutaneo us technique. A JR 4.0 INFINITI CATHETER FR 4 was advanced over a wire. OMNIPAQUE, 350 MG, 150ML 150ML was us ed for 18:49:19 injections. Recorded Pressure: LV, RA=334, Condition=Condition 1 18:50:17 (Left Ventricle) LV 132/12/13 18:50:47 The LV was manually injected with 8 cc's and visualized. OMNIPAQUE, 350 MG, 150ML 150ML use d. 18:50:53 The RCA was injected and visualized at various angles. OMNIPAQUE, 350 MG, 150ML 150ML used . 18:50:56 HR=73 bpm, OJLQ=067/98 mmhg, SpO2=96.0 %, Resp=8 B/min 18:51:17 Catheter was removed A JL 4.0 INFINITI CATHETER FR 4 was advanced over a wire. OMNIPAQUE, 350 MG, 150ML 150ML was us ed for 18:52:03 injections. Recorded Pressure: Ao, HR=68, Condition=Condition 1 18:52:32 (Aorta) Ao 129/80/101 18:52:46 The LCA was injected and visualized at various angles. OMNIPAQUE, 350 MG, 150ML 150ML used . 18:55:02 Catheter was removed 18:55:21 HR=71 bpm, TYZH=054/95 mmhg, SpO2=96.0 %, Resp=14 B/min A SHEATH, FR6.5 PRELUDE 11CM FR 6.5 was exchanged in the Fem Art (right). This was necessary in order to 18:57:11 accomodate a larger catheter. 7700 units HEPARIN given in lab by Unique Ruvalcaba, MITESH in Left Antecubital via Peripheral IV . Ordered by Yuniel, 18:57:36 Sukhi. 1 mg VERSED given in lab by Unique Ruvalcaba, MITESH in Left Antecubital via Peripheral IV. Order ed by Yuniel, 18:58:24 Sukhi. 19:00:26 HR=79 bpm, ZFAA=225/86 mmhg, SpO2=95.0 %, Resp=17 B/min 19:00:53 Pressure channel 1 zeroed. A XB 4.0 GUIDE CATHETER FR 6 was advanced over a wire. OMNIPAQUE, 350 MG, 150ML 150ML was used for 19:01:15 injections. 19:02:40 Activated Clotting Time Drawn 19:03:51 Flow Wire was was placed in the Fem Art (right). Error with wire. Not used. 19:05:23 HR=74 bpm, QTUV=215/95 mmhg, SpO2=96.0 %, Resp=18 B/min 19:08:19 ACT (Normal Range 90-180) = 265 19:09:06 Pressure channel 1 zeroed. 19:09:56 The wire was removed. Unstable wire error. 19:10:13 Flow Wire was was placed in the LAD Prox. The IFR measures 0.85 Percent. 19:10:26 HR=73 bpm, HWYL=690/93 mmhg, SpO2=96.0 %, Resp=17 B/min 19:15:23 HR=75 bpm, MHNB=377/96 mmhg, SpO2=97.0 %, Resp=17 B/min An STENT, 3.0 18 INTEGRITY 3.0 18 Bare Metal Stent was inserted through a XB 4.0 GUIDE CATHETER FR 6 over a 19:15:46 PRIME WIRE, VERRATA 185CM 185CM. A STENT, 3.0 18 INTEGRITY 3.0 18 was deployed using a 30 MADALYN INDEFLATOR at 11 atmospheres for 1 2 seconds in ::57 the LAD Prox. 19:18:46 Delivery device removed 200 mcg NTG (IC) given in lab by Valery Franco, RESOURCE COORDINATOR TECH2 in Right Groin via Intra-coronary. Ordered by Yuniel :19:10 Sukhi. 19:20:24 HR=77 bpm, VDPL=659/97 mmhg, SpO2=94.0 %, Resp=16 B/min 19:21:01 Wire removed 19:21:02 Catheter was removed 19:21:16 Case End 55 mL AGGRASTAT BOLUS given in lab by Unique Ruvalcaba, RN in Left Antecubital via Peripheral IV. Ordered by 19:22:51 Sukhi Brice. 0.15 mcg/kg/min AGGRASTAT DRIP given in lab by Unique Ruvalcaba, RN in Left Antecubital via P eripheral IV. 19:23:23 Pump/Drip Flow = 19.8 ml/hr using NaCl .9 with a concentration of 12.5 mg in 250 ml. Ordered by Sukhi Brice. 19:25:23 HR=78 bpm, PNWL=034/99 mmhg, SpO2=97.0 %, Resp=14 B/min 19:26:36 In the Fem Art (right) the SHEATH, FR6.5 PRELUDE 11CM FR 6.[address] by Valery Franco, RESOURCE COORDINATOR TECH2. 19::46 Sterile dressing applied to site ::57 No case complications noted. 19:27:02 Cine recording checked. 19:27:04 Bedside Report will be given. 19:27:05 Implantable Device card placed in patient's chart. 19:27:10 Contrast Scanned ::14 A Left Heart Cath was performed. 19:29:59 Vitals capture stopped. 19:30:51 60 mg EFFIENT given in lab by Unique Ruvalcaba, RN via Oral. Ordered by Sukih Brice. 19:39:15 [facility] - Contrast Media Used In Study Contrast Total Opened (mL) Total Used (mL) Total Wasted (mL) Omnipaque 115 115 0 End Study - Maximum Contrast Load Max Contrast Load (mL) 500.0 End Study - Radiation Exposure Fluoro Time (minutes) 3.4 End Study - Patient Disposition Complications Transferred To Interventional Outcome No Telemetry Bed successful
[2017-04-12] MEDS ORDERED: PRASUGREL 10 MG TAB PO ONE (20:00)
[2017-04-12] MEDS ORDERED: MISC INFORMATION XX ONE (20:00)
[2017-04-12] MEDS ORDERED: TIROFIBAN INFUSION INJ 250 ML IV SCH (20:00)
[2017-04-12] MEDS ORDERED: BACITRACIN OINT 0.9 GM PKT TOP ONE (20:00)
[2017-04-12] MEDS: DOCUSATE SODIUM 50 MG/SENNA 8.6 MG TAB PO SCH (21:00)
[2017-04-12] MEDS ORDERED: ATORVASTATIN 10 MG TAB PO SCH (21:00)
[2017-04-12] MEDS ORDERED: BUDESONIDE-FORMOTEROL 80/4.5 MCG INHALER INH SCH (21:00)
[2017-04-12] MEDS: METOPROLOL TARTRATE 25 MG TAB PO SCH (21:00)
[2017-04-12] MEDS: CARVEDILOL 3.125 MG TAB PO SCH (21:01)
[2017-04-12] MEDS: SODIUM CHLORIDE 0.9% FLUSH 10 ML FLUSH IV FLUSH SCH (21:01)
[2017-04-13] VITALS (8 sets, daily range): BP systolic 141–146; BP diastolic 88–89; PULSE 67–77; RESP 16–20; TEMP 98.2–98.4; O2SAT 96–97
[2017-04-13] MEDS: NITROGLYCERIN 2% OINT 1 GM PACKET TOPICAL SCH ×2 (05:51)
[2017-04-13 06:30] LABS: AUTOMATED NEUTROPHIL # 3.9 TH/MM3 (1.8-7.7); BASOPHIL % 0.5 % (0.0-2.0); EOSINOPHIL # 0.1 TH/MM3 (0-0.4); EOSINOPHIL % 1.5 % (0.0-4.0); HEMATOCRIT 37.9 % (39.0-51.0); HEMOGLOBIN 13.2 GM/DL (13.0-17.0); LYMPHOCYTE # 1.7 TH/MM3 (1.0-4.8); MEAN CELL VOLUME 87.6 FL (80.0-100.0); MEAN CORPUSCULAR HEMOGLOBIN 30.6 PG (27.0-34.0); MEAN CORPUSCULAR HGB CONC 34.9 % (32.0-36.0); MEAN PLATELET VOLUME 8.1 FL (7.0-11.0); MONO % 5.4 % (0.0-8.0); MONOCYTE # 0.3 TH/MM3 (0-0.9); NEUT % 64.6 % (16.0-70.0); PLATELET COUNT 168 TH/MM3 (150-450); RED BLOOD COUNT 4.32 MIL/MM3 (4.50-5.90); RED CELL DISTRIBUTION WIDTH 13.3 % (11.6-17.2)
[2017-04-13 06:41] LABS: ALBUMIN 3.4 GM/DL (3.4-5.0); AST (GOT) 39 U/L (15-37); BICARBONATE 27.7 MEQ/L (21.0-32.0); BLOOD UREA NITROGEN 14 MG/DL (7-18); CALCIUM 8.6 MG/DL (8.5-10.1); CHLORIDE 104 MEQ/L (98-107); CHOLESTEROL 218 MG/DL (120-200); CREATININE 1.04 MG/DL (0.60-1.30); GLOMERULAR FILTRATION RATE 74 ML/MIN (>89); GLUCOSE,RANDOM 113 MG/DL (74-106); SODIUM (NA) 139 MEQ/L (136-145)
[2017-04-13 06:50] LABS: ALKALINE PHOSPHATASE 62 U/L (45-117); ALT (GPT) 56 U/L (12-78); CHOLESTEROL/ HDL RATIO 9.73 RATIO; HDL CHOLESTEROL 22.4 MG/DL (40.0-60.0); TOTAL BILIRUBIN ADULT 0.2 MG/DL (0.2-1.0); TOTAL PROTEIN 6.9 GM/DL (6.4-8.2); TRIGLYCERIDES 1132 MG/DL (42-150)
--- NOTE | 2017-04-13 08:53 | HHI.PR ---
Subjective Remarks Patient seen and examined this morning. He is status post cardiac catheterization. Temperature 98.2, pulse 74, respiratory rate 16, blood pressure 142/89, pulse ox 96 on room. He denies feeling any chest pain at this time. He admits to feeling some chest pressure. It is not as severe or painful as what originally brought him into the hospital. He feels like he is doing a lot better at this time. He came down from [place] for the [place], and is hoping to get hospital today to go to the race. Informed him that that decision will have to be made by his insurance compliance analyst. Objective Vitals Vital Signs Date Time Temp Pulse Resp B/P (MAP) Pulse Ox O2 Delivery O2 Flow Rate FiO2 04/13/17 08:36 98.2 74 16 142/89 (106) 96 04/13/17 06:00 77 04/13/17 05:00 75 04/13/17 04:00 Room Air 04/13/17 04:00 98.2 67 20 146/88 (107) 97 04/13/17 04:00 67 04/13/17 03:00 70 04/13/17 02:00 69 04/13/17 01:00 72 04/13/17 00:00 Room Air 04/13/17 00:00 98.4 71 20 141/88 (105) 97 04/13/17 00:00 71 04/12/17 23:00 76 04/12/17 22:00 70 04/12/17 21:00 74 04/12/17 20:00 69 04/12/17 20:00 98.0 69 18 155/89 (111) 98 04/12/17 17:14 98.2 68 20 140/62 (88) 96 04/12/17 15:35 72 04/12/17 12:06 97.9 72 18 140/80 (100) 98 04/12/17 10:28 20 04/12/17 09:24 98.2 68 20 136/80 (98) 98 I/O 04/12/17 04/12/17 04/12/17 04/13/17 04/13/17 04/13/17 06:59 14:59 22:59 06:59 14:59 22:59 Intake Total 305 ml 680 ml Output Total 800 ml Balance 305 ml -120 ml Intake Oral 480 ml IV Total 305 ml 200 ml Output Urine Total 800 ml # Bowel Movements 1 Result Diagram: 04/13/17 0608 04/13/17 0608 Imaging Last Impressions Chest X-Ray 04/12/17 0420 Signed Impressions: Service Date/Time: Wednesday, April 12, 2017 04:32 - CONCLUSION: No acute cardiopulmonary disease. Domenico Saha MD Myocardial Perfusion Scan Nuc Med 04/12/17 0000 Signed Impressions: Service Date/Time: Wednesday, April 12, 2017 12:56 - CONCLUSION: 1. Subtle focal anterior wall ischemia near the base. 2. Intact wall motion with EF of 54%%. RISK CATEGORY: Low (<1%% Annual Mortality Rate) Jesus Saini MD Objective Remarks GEN: Well-developed, well-nourished patient. No acute distress. CV: Regular rate and rhythm without obvious murmurs LUNGS: Clear to auscultation bilaterally. Normal respiratory effort. No wheezes , rales, rhonchi. GI: Soft, nontender, nondistended. No palpable masses. Bowel sounds WNL. EXT: No edema. NEURO/PSYCH: Afocal. Awake, alert, and oriented x3. Appropriate insight and judgment. Procedures Cardiac catheterization on 04/12/17 Medications and IVs Current Medications Medications (Trade) Dose Ordered Sig/Tez Route Start Time Stop Time Status Last Admin (Duoneb Neb) 1 ampule Q4HR NEB PRN INH 04/12/17 08:30 (Nitroglycerin 2% Oint) 1 inch Q6HR TOPICAL 04/12/17 18:00 (Lopressor) 25 mg Q12HR PO 04/12/17 21:00 04/12/17 21:00 (Symbicort 80-4.5 Mcg Inh) 1 puff Q12HR INH 04/12/17 21:00 (Tylenol) 650 mg Q4H PRN PO 04/12/17 18:15 (Zofran Inj) 4 mg Q6H PRN IVP 04/12/17 18:15 (Narcan Inj) 0.4 mg UNSCH PRN IV PUSH 04/12/17 18:15 (Concha-Colace) 1 tab BID PO 04/12/17 21:00 04/12/17 21:00 (Milk Of Magnesia Liq) 30 ml Q12H PRN PO 04/12/17 18:15 (Senokot) 17.2 mg Q12H PRN PO 04/12/17 18:15 (Lactulose Liq) 30 ml DAILY PRN PO 04/12/17 18:15 (Protonix) 20 mg DAILY PO 04/13/17 09:00 (NS Flush) 2 ml UNSCH PRN IV FLUSH 04/12/17 20:00 (NS Flush) 2 ml BID IV FLUSH 04/12/17 21:00 04/12/17 21:01 (Aspirin Chew) 162 mg DAILY PO 04/13/17 09:00 (Effient) 10 mg DAILY PO 04/13/17 09:00 Tirofiban/Sodium Chloride 250 ml @ 19.8 mls/hr [id number] IV 04/12/17 20:00 04/13/17 13:59 04/12/17 19:22 (Coreg) 3.125 mg BID PO 04/12/17 21:00 04/12/17 21:01 (Altace) 2.5 mg DAILY PO 04/13/17 09:00 (Lipitor) 10 mg HS PO 04/12/17 21:00 04/12/17 21:03 A/P Problem List: (1) HTN (hypertension) ICD Code: I10 - Essential (primary) hypertension (2) COPD (chronic obstructive pulmonary disease) ICD Code: J44.9 - Chronic obstructive pulmonary disease, unspecified (3) Chest pain ICD Code: R07.9 - Chest pain, unspecified Status: Acute Assessment and Plan Patient is a 57-year-old male with primary medical history of HTN, COPD, GERD, chronic back pain who came into the hospital for complaints of chest pain. Chest pain R/O VT - C/o chest pain associated with nausea, diaphoresis - Nitroglycerin provided, aspirin 2 - EKG reviewed sinus rhythm - Troponin x 3 <0.02 - Myocardial perfusion scan showed 1. Subtle focal anterior wall ischemia near the base. 2. Intact wall motion with EF of 54%. - Cardiology consult for further evaluation recommendations. - Status post cardiac catheterization with stent placement HTN - metoprolol 25 mg twice a day - Monitor BP trend HLD - Not on any medication. Check lipid profile - 10 if clinically indicated COPD, not on exacerbation - Continue home medications Symbicort twice a day, duo nebs when necessary - Monitor respiratory status Chronic pain - Tylenol for now. Patient states that he takes Flexeril at home as needed GERD - Patient takes Nexium 20 mg twice a day at home OTC - We'll give pantoprazole for now. DVT prop SCDs Discharge Planning Pending cardiology recommendations Problem Qualifiers (1) Chest pain: Qualified Codes: R07.9 - Chest pain, unspecified Jerel Abarca MD, R3 Apr 13, 2017 08:53
[2017-04-13] MEDS ORDERED: PRASUGREL 10 MG TAB PO SCH (09:00)
[2017-04-13] MEDS ORDERED: RAMIPRIL 2.5 MG CAP PO SCH (09:00)
[2017-04-13] MEDS ORDERED: PANTOPRAZOLE SOD 20 MG DELAYED RELEASE TAB PO SCH (09:00)
[2017-04-13] MEDS ORDERED: ASPIRIN 81 MG CHEW TAB PO SCH (09:00)
[2017-04-13] MEDS: DOCUSATE SODIUM 50 MG/SENNA 8.6 MG TAB PO SCH (09:06)
[2017-04-13] MEDS: CARVEDILOL 3.125 MG TAB PO SCH (09:06)
[2017-04-13] MEDS: METOPROLOL TARTRATE 25 MG TAB PO SCH (09:06)
[2017-04-13] MEDS: SODIUM CHLORIDE 0.9% FLUSH 10 ML FLUSH IV FLUSH SCH (09:08)
[2017-04-13] MEDS ORDERED: LIPI10TA PO (09:59)
[2017-04-13] MEDS ORDERED: ASPI81 PO (09:59)
[2017-04-13] MEDS ORDERED: PLAV75TA29 PO (09:59)
[2017-04-13] MEDS ORDERED: METO25TA3 PO (09:59)
[2017-04-13] MEDS ORDERED: RAMI2.5C PO (09:59)
--- NOTE | 2017-04-13 10:00 | HHI.DCPOC ---
Discharge Care Plan Diagnosis: (1) Chest pain (2) COPD (chronic obstructive pulmonary disease) (3) HTN (hypertension) Goals to Promote Your Health * To prevent worsening of your condition and complications * To maintain your health at the optimal level Directions to Meet Your Goals Take your medications as prescribed Follow your dietary instruction Follow activity as directed Keep your appointments as scheduled Take your immunizations and boosters as scheduled If your symptoms worsen call your PCP, if no PCP go to Urgent Care Center or Emergency Room Smoking is Dangerous to Your Health. Avoid second hand smoke Call the 24-hour hour crisis hotline for domestic abuse at Jerel Abarca MD, R3 Apr 13, 2017 10:00
--- NOTE | 2017-04-13 10:28 | PD.CARD.PN ---
Subjective Subjective Remarks alert in nad, feels much better, assymptomatic Objective Medications Current Medications Medications (Trade) Dose Ordered Sig/Tez Route Start Time Stop Time Status Last Admin (Duoneb Neb) 1 ampule Q4HR NEB PRN INH 04/12/17 08:30 (Nitroglycerin 2% Oint) 1 inch Q6HR TOPICAL 04/12/17 18:00 (Lopressor) 25 mg Q12HR PO 04/12/17 21:00 04/13/17 09:06 (Symbicort 80-4.5 Mcg Inh) 1 puff Q12HR INH 04/12/17 21:00 (Tylenol) 650 mg Q4H PRN PO 04/12/17 18:15 (Zofran Inj) 4 mg Q6H PRN IVP 04/12/17 18:15 (Narcan Inj) 0.4 mg UNSCH PRN IV PUSH 04/12/17 18:15 (Concha-Colace) 1 tab BID PO 04/12/17 21:00 04/13/17 09:06 (Milk Of Magnesia Liq) 30 ml Q12H PRN PO 04/12/17 18:15 (Senokot) 17.2 mg Q12H PRN PO 04/12/17 18:15 (Lactulose Liq) 30 ml DAILY PRN PO 04/12/17 18:15 (Protonix) 20 mg DAILY PO 04/13/17 09:00 04/13/17 09:06 (NS Flush) 2 ml UNSCH PRN IV FLUSH 04/12/17 20:00 (NS Flush) 2 ml BID IV FLUSH 04/12/17 21:00 04/13/17 09:08 (Aspirin Chew) 162 mg DAILY PO 04/13/17 09:00 04/13/17 09:06 (Effient) 10 mg DAILY PO 04/13/17 09:00 04/13/17 09:07 Tirofiban/Sodium Chloride 250 ml @ 19.8 mls/hr [id number] IV 04/12/17 20:00 04/13/17 13:59 04/12/17 19:22 (Coreg) 3.125 mg BID PO 04/12/17 21:00 04/13/17 09:06 (Altace) 2.5 mg DAILY PO 04/13/17 09:00 04/13/17 09:07 (Lipitor) 10 mg HS PO 04/12/17 21:00 04/12/17 21:03 Vital Signs / I&O Vital Signs Date Time Temp Pulse Resp B/P (MAP) Pulse Ox O2 Delivery O2 Flow Rate FiO2 04/13/17 08:36 98.2 74 16 142/89 (106) 96 04/13/17 06:00 77 04/13/17 05:00 75 04/13/17 04:00 Room Air 04/13/17 04:00 98.2 67 20 146/88 (107) 97 04/13/17 04:00 67 04/13/17 03:00 70 04/13/17 02:00 69 04/13/17 01:00 72 04/13/17 00:00 Room Air 04/13/17 00:00 98.4 71 20 141/88 (105) 97 04/13/17 00:00 71 04/12/17 23:00 76 04/12/17 22:00 70 04/12/17 21:00 74 04/12/17 20:00 69 04/12/17 20:00 98.0 69 18 155/89 (111) 98 04/12/17 17:14 98.2 68 20 140/62 (88) 96 04/12/17 15:35 72 04/12/17 12:06 97.9 72 18 140/80 (100) 98 04/12/17 10:28 20 I/O 04/12/17 04/12/17 04/12/17 04/13/17 04/13/17 04/13/17 07:00 15:00 23:00 07:00 15:00 23:00 Intake Total 305 ml 680 ml Output Total 800 ml Balance 305 ml -120 ml Intake Oral 480 ml IV Total 305 ml 200 ml Output Urine Total 800 ml # Bowel Movements 1 Physical Exam GENERAL: SKIN: Warm and dry. HEAD: Normocephalic. EYES: No scleral icterus. No injection or drainage. NECK: Supple, trachea midline. No JVD or lymphadenopathy. CARDIOVASCULAR: Regular rate and rhythm without murmurs, gallops, or rubs. RESPIRATORY: Breath sounds equal bilaterally. No accessory muscle use. GASTROINTESTINAL: Abdomen soft, non-tender, nondistended. MUSCULOSKELETAL: No cyanosis, or edema. BACK: Nontender without obvious deformity. No CVA tenderness. Laboratory Laboratory Tests Test 04/12/17 11:10 04/13/17 06:08 Total Creatine Kinase 119 U/L 127 U/L Creatine Kinase MB 1.3 NG/ML Troponin I LESS THAN 0.02 NG/ML White Blood Count 6.0 TH/MM3 Red Blood Count 4.32 MIL/MM3 Hemoglobin 13.2 GM/DL Hematocrit 37.9 % Mean Corpuscular Volume 87.6 FL Mean Corpuscular Hemoglobin 30.6 PG Mean Corpuscular Hemoglobin Concent 34.9 % Red Cell Distribution Width 13.3 % Platelet Count 168 TH/MM3 Mean Platelet Volume 8.1 FL Neutrophils (%) (Auto) 64.6 % Lymphocytes (%) (Auto) 28.0 % Monocytes (%) (Auto) 5.4 % Eosinophils (%) (Auto) 1.5 % Basophils (%) (Auto) 0.5 % Neutrophils # (Auto) 3.9 TH/MM3 Lymphocytes # (Auto) 1.7 TH/MM3 Monocytes # (Auto) 0.3 TH/MM3 Eosinophils # (Auto) 0.1 TH/MM3 Basophils # (Auto) 0.0 TH/MM3 CBC Comment DIFF FINAL Differential Comment Blood Urea Nitrogen 14 MG/DL Creatinine 1.04 MG/DL Random Glucose 113 MG/DL Total Protein 6.9 GM/DL Albumin 3.4 GM/DL Calcium Level 8.6 MG/DL Alkaline Phosphatase 62 U/L Aspartate Amino Transf (AST/SGOT) 39 U/L Alanine Aminotransferase (ALT/SGPT) 56 U/L Total Bilirubin 0.2 MG/DL Sodium Level 139 MEQ/L Potassium Level 4.0 MEQ/L Chloride Level 104 MEQ/L Carbon Dioxide Level 27.7 MEQ/L Anion Gap 7 MEQ/L Estimat Glomerular Filtration Rate 74 ML/MIN Triglycerides Level 1132 MG/DL Cholesterol Level 218 MG/DL LDL Cholesterol MG/DL HDL Cholesterol 22.4 MG/DL Cholesterol/HDL Ratio 9.73 RATIO Assessment and Plan Problem List: (1) Unstable angina ICD Codes: I20.0 - Unstable angina (2) CAD (coronary artery disease) ICD Codes: I25.10 - Atherosclerotic heart disease of [place] coronary artery without angina pectoris (3) HTN (hypertension) ICD Codes: I10 - Essential (primary) hypertension (4) Chest pain ICD Codes: R07.9 - Chest pain, unspecified Status: Acute (5) COPD (chronic obstructive pulmonary disease) ICD Codes: J44.9 - Chronic obstructive pulmonary disease, unspecified Assessment and Plan 1.) CAD/[place] - pod #1 pci bms prox lad, assymptomatic, ok to dc from cv standpoint on aspirin, plavix, lopressor, lisinopril; statin held due to elevated lfts, i explained to patient that noncompliance with aspirin and plavix would be high risk for mortality and significant morbidity, patient and his understand, nurse present at bedside Problem Qualifiers (1) HTN (hypertension): Qualified Codes: I10 - Essential (primary) hypertension (2) Chest pain: Qualified Codes: R07.9 - Chest pain, unspecified Sukhi Brice MD Apr 13, 2017 10:28
[2017-04-13] MEDS ORDERED: IOHEXOL 350 MG/ML 100 ML BTL (for Cath Lab) OTHER ONE (11:02)
[2017-04-13] MEDS ORDERED: IOHEXOL 350 MG/ML 50 ML BTL (for Cath Lab) OTHER ONE (11:02)
--- NOTE | 2017-04-13 13:15 | TR ---
Date Performed: 04/12/2017 Time Performed: 13:24:12 DOCTOR: Neo Goetz DRUG LIST: CLINICAL HISTORY: ANGINA REASON FOR TEST: Angina REASON FOR ENDING: OBSERVATION: CONCLUSION: Lexiscan stress test was performed under standard four minute protocol. Radionucl[place] e was injected one minute prior to ending the test. No electrocardiographic abormalities were present to suggest ischemia. Nuclear imaging and interpretation are pending. COMMENTS:
--- NOTE | 2017-04-13 13:18 | EKG ---
Date Performed: 04/12/2017 Time Performed: 20:22:42 PTAGE: 57 years EKG: Sinus rhythm Poor R wave progression - probable normal variant Anterior T wave changes are nonspecific Low QRS vo ltages in limb leads Borderline ECG PREVIOUS TRACING : 04/12/2017 10.33 Since previous tracing, no significant change noted DOCTOR: Neo Goetz Interpretating Date/Time 04/13/2017 13:17:33
--- NOTE | 2017-04-13 13:20 | EKG ---
Date Performed: 04/13/2017 Time Performed: 06:04:24 PTAGE: 57 years EKG: Sinus rhythm Leftward axis Anteroseptal T wave changes are nonspecific Low QRS voltages in limb leads Borderline ECG PREVIOUS TRACING : 04/12/2017 20.22 Since previous tracing, no significant change noted DOCTOR: Neo Goetz Interpretating Date/Time 04/13/2017 13:18:55
--- NOTE | 2017-04-13 19:54 | MR ---
cc: DAVINA WILLOUGHBY M.D. DATE: 04/13/2017. PROCEDURES PERFORMED: Left heart catheterization, left ventriculography, coronary angiography, FFR of the proximal to mid left anterior descending, percutaneous coronary intervention with bare-metal stent of the proximal left anterior descending. INDICATIONS FOR THE PROCEDURE: Unstable angina. Acute coronary syndrome. [place] [employer] class 4 angina, coronary artery disease, COPD, hypertension, multiple cardiac risk factors. DESCRIPTION OF THE PROCEDURE IN DETAIL: The patient was brought to the cardiac catheterization laboratory and prepped and draped in the usual sterile fashion. 10 cc of 1% lidocaine was used to locally anesthetize the right common femoral artery. A 4-Bolivian sheath was subsequently placed in the right common femoral artery. A 4-Bolivian JR-4 and JL-4 catheters were used to perform left and right coronary angiography and left ventriculography. FINDINGS: Left ventricular pressure is 130/16-18. Ejection fraction is 60%. The right coronary artery is nondominant. There is mild disease in the proximal segment up to 20% angiographically. The left main coronary artery has no significant disease angiographically. The left circumflex vessel is a dominant vessel with mild to moderate disease in the mid segment up to 30% to 40% angiographically. At this segment, there is a bifurcation with a medium-sized obtuse marginal vessel which has no significant disease angiographically. There is a posterolateral artery, which is a reference vessel diameter of 2.75 mm in diameter with no significant disease angiographically. The left posterior descending artery has no significant disease angiographically. The left anterior descending approaches the apex. In the RAMIREZ cranial view at the bifurcation with the first diagonal artery, there is 60% stenosis. The diagonal vessel has a 70 to 80 degree angulation off the left anterior descending and has no significant obstructive disease. Given the patient's presentation with typical resting chest pain, which was acute in origin, mild reversibility in the anterior wall, anteroseptal Q waves on the EKG, I do think IFR and FFR of the proximal left anterior descending was medically necessary. Therefore the 4-Bolivian sheath was exchanged for the 6-Bolivian sheath. A 6-Bolivian XB 4.0 guide and a 0.014 [place] pressure wire were placed into the proximal left anterior descending. The introducer was removed. The side catheter was sterilely flushed with 20 cc of normal saline. Pressure waveforms were normalized. I then advanced the 0.014 [place] pressure wire into the distal left anterior descending. The lowest IFR I saw recorded was 0.81. The lowest IFR we actually recorded was 0.85. Based on this strongly positive IFR, I did think percutaneous coronary intervention was medically indicated. I then placed a 3.0 x 18 Integrity stent across the lesion without the stent deployed. This did reproduce the patient's symptoms of angina that he had prior to admission. I deployed the stent, one flush at 11 atmospheres for 15 seconds. This made the patient's chest pain worse. At the end of the procedure, the patient's stenosis went from 60% to 0% with GÉNESIS III flow. The first diagonal artery was __ but there was GÉNESIS III flow into the vessel. There was stenosis of up to 60%. I then gave 200 micrograms of intracoronary nitro as there also appeared to be spasm distal to the stent. This improved the vessel diameter of the diagonal vessel and the mid left anterior descending. There still remained some spasm in the mid left anterior descending beyond the stent, which was not there prior to the procedure suggesting again this was spasm. Approximately five minutes after the procedure, the patient's chest pain was completely relieved. CONCLUSIONS: 1. Unstable angina, acute coronary syndrome, [place] [employer] class 4 angina. Culprit 60% stenosis in the proximal to mid left anterior descending as detailed above with IFR of 0.85. 2. Mild disease of the nondominant right. 3. Normal left ventricular systolic function with ejection fraction of 60%. 4. Successful direct percutaneous coronary intervention with bare-metal stent of the proximal left anterior descending from 60% to 0% with ÉGNESIS III flow. 5. Mild to moderate ____ of the first diagonal artery, which has a reference vessel diameter of 2 to 5 mm in diameter, residual 50% stenosis with GÉNESIS III flow. Also, spasm in the mid left anterior descending beyond the stent partially relieved with nitroglycerin. 6. Recommend Effient 60 p.o. load and then 10 milligrams daily for twelve to fifteen months. If the patient's insurance does not cover Effient and/or he cannot afford this, recommend Plavix 75 milligrams a day for at least twelve to fifteen months, aspirin 162 milligrams daily, a statin per NCCN guidelines medical management of coronary disease. 7. 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 MD LAMIN Mattson/NANO /7:24 PM /7:32 PM
== END 2017-04-13 11:03 | disposition home or self-care (01) ==
LOC: NEPC 04:12 → NEDA 05:09 → NEPGCP 06:02 → HCIS 18:22
PROVIDERS: ADMIT Hospitalist; ATTEND Hospitalist
DX: I25.110 Atherosclerotic heart disease of native coronary artery with unstable angina pectoris (principal); I24.9 Acute ischemic heart disease, unspecified; I10 Essential (primary) hypertension; J44.9 Chronic obstructive pulmonary disease, unspecified; K21.9 Gastro-esophageal reflux disease without esophagitis; G89.29 Other chronic pain; E78.5 Hyperlipidemia, unspecified; M54.9 Dorsalgia, unspecified; R61 Generalized hyperhidrosis; R94.31 Abnormal electrocardiogram [ECG] [EKG]; R10.30 Lower abdominal pain, unspecified; R06.02 Shortness of breath; R19.7 Diarrhea, unspecified; R11.2 Nausea with vomiting, unspecified; R73.9 Hyperglycemia, unspecified; Z79.899 Other long term (current) drug therapy; Z87.891 Personal history of nicotine dependence; Z91.14 Patient's other noncompliance with medication regimen
CPT/HCPCS: 71045; 78452; 80053; 80061; 82550; 82552; 83690; 83735; 84484; 85002; 85025; 85610; 85730; 92928; 93005; 93017; 93458; 93571; 94664; 96361; 96374; 99152; 99153; 99285; A9502; C1769; C1876; C1887; C1893; G0378; J1644; J2250; J2405; J2785; J3010; J7030; J3246; Q9967